=== PATIENT | female | born 1950 | race Caucasian/White ===

== ENCOUNTER 2017-10-14 16:58 | Emergency (ER) | payer OTHER ==
[2017-10-14 17:12] VITALS: BP 183/94
--- NOTE | 2017-10-14 17:22 | EDM.PDOC ---
ED HPI GENERAL MEDICAL PROBLEM - General Chief Complaint: Respiratory Problem Stated Complaint: COUGH/WEAKNESS Time Seen by Provider: 10/14/17 17:20 Source of Information: Reports: Patient History Limitations: Reports: No Limitations - History of Present Illness INITIAL COMMENTS - FREE TEXT/NARRATIVE: 66-year-old female presents to the ED at the request of his primary care physician Dr. Eddy. Patient has had a paroxysmal intermittently productive cough for the better part of a month. He states that she appreciates intermittent fever and/or chills. She came up from the hemodialysis suite as she was noted to be coughing much more by the nursing staff in the dialysis unit. O2 sats are drifting between 90 and 92%. She has a history of COPD and of course congestive failure due to renal disease. Apparently she did complete all 4 hours of her dialysis run today. Appetite has remained good. She does use a nebulizer machine at home and it sometimes helps her breathe better. She is date since she does sleep a lot on the couch propped up on 2 pillows because she is unable to lie flat to breathe at night. As far she knows her dry weight has not been changed. She`s had no recent labs or x-rays. She has had previous flu shot. Onset: Gradual Onset Date: 09/15/17 Duration: Day(s): Location: Reports: Chest (Shortness of breath and paroxysmal and intermittent cough. Occasionally productive of yellowish colored sputum.) Quality: Reports: Same as Previous Episode, Other. Denies: Sharp, Stabbing Severity: Moderate Improves with: Reports: Medication (Sometimes inhalation medication seems to help with her nebulizer machine.) Worsens with: Reports: Movement (Plays out very easily on minimal activity.) Context: Denies: Activity, Exercise, Lifting, Sick Contact, Trauma, Other Associated Symptoms: Reports: Cough, cough w sputum, Fever/Chills, Malaise, Shortness of Breath, Weakness (Feel she's getting weaker particularly in her lower extremities.). Denies: Chest Pain, Diaphoresis (Occasional production of yellowish sputum without blood), Headaches (She feels cold and hot at times.), Loss of Appetite, Nausea/Vomiting, Rash, Seizure, Syncope Treatments SENIOR HYDROGEOLOGIST: Reports: Breathing Treatments (Has a nebulizer machine at home. But sure what medicine she uses with this.) - Related Data Allergies Allergy/AdvReac Type Severity Reaction Status Date / Time cephalexin [Cephalexin] Allergy Unknown Cannot Verified 10/14/17 17:12 Remember hydrochlorothiazide Allergy Unknown Cannot Verified 10/14/17 17:12 Remember sertraline HCl [From Zoloft] Allergy Unknown Cannot Verified 10/14/17 17:12 Remember triamterene [Triamterene] Allergy Unknown Cannot Verified 10/14/17 17:12 Remember iodine Allergy Cannot Verified 10/14/17 17:12 Remember Home Meds: Home Meds Acetaminophen [Tylenol] 650 mg PO Q6H PRN 10/14/17 [History] Ascorbic Acid 500 mg PO BEDTIME 10/14/17 [History] Benztropine Mesylate 0.5 mg PO BID 10/14/17 [History] Clopidogrel [Plavix] 75 mg PO DAILY 10/14/17 [History] Diltiazem [Diltiazem ER] 60 mg PO ASDIRECTED 10/14/17 [History] Diltiazem [Diltiazem ER] 60 mg PO ASDIRECTED 10/14/17 [History] Docusate Sodium [Colace] 100 mg PO BID 10/14/17 [History] Donepezil HCl [Aricept] 10 mg PO BEDTIME 10/14/17 [History] Donepezil [Aricept] 5 mg PO DAILY 10/14/17 [History] Haloperidol [Haldol] 5 mg PO BEDTIME 10/14/17 [History] Multivitamin [Multi-Vitamin Daily] 1 tab PO DAILY 10/14/17 [History] Nitroglycerin 0.4 mg SL ASDIRECTED PRN 10/14/17 [History] Non-Formulary Medication [NF Drug] 1 tab PO BEDTIME PRN 10/14/17 [History] Nystatin 1 each TOP BID PRN 10/14/17 [History] PARoxetine [Paxil] 20 mg PO DAILY 10/14/17 [History] Pantoprazole [ProTONIX] 40 mg PO DAILY 10/14/17 [History] Polyethylene Glycol 3350 [MiraLAX] 17 gm PO DAILY PRN 10/14/17 [History] Pramoxine HCl [Sarna] 222 ml TP BID PRN 10/14/17 [History] Prednisone [IJD: predniSONE] 40 mg PO WITHBREAKFAST 10/14/17 [History] Simvastatin [Zocor] 10 mg PO BEDTIME 10/14/17 [History] Sodium Bicarbonate 325 mg PO TID 10/14/17 [History] Warfarin Sodium 2.5 mg PO ASDIRECTED 10/14/17 [History] Warfarin Sodium 5 mg PO ASDIRECTED 10/14/17 [History] guaiFENesin 200 mg PO Q4H PRN 10/14/17 [History] Past Medical History HEENT History: Reports: Impaired Vision Cardiovascular History: Reports: Afib (Chronically.), Hypertension, NV, SOB on Exertion, Stents Gastrointestinal History: Reports: Other (See Below) Other Gastrointestinal History: constipation Genitourinary History: Reports: Dialysis, Other (See Below) (Patient states she makes about a cup of urine daily.) VACUUM CASTER History: Reports: Musculoskeletal History: Reports: Back Pain, Chronic Psychiatric History: Reports: Depression, Psychosis Endocrine/Metabolic History: Reports: Diabetes, Type II - Past Surgical History Cardiovascular Surgical History: Reports: Vascular Surgery (A-V shunt Lt distal arm utilized for dialysis.) Social & Family History - Tobacco Use Smoking Status *Q: Former Smoker Years of Tobacco use: 1 Used Tobacco, but Quit: Yes Month Tobacco Last Used: 1966 Second Hand Smoke Exposure: No - Caffeine Use Caffeine Use: Reports: Coffee - Alcohol Use Days Per Week of Alcohol Use: 0 - Recreational Drug Use Recreational Drug Use: No - Living Situation & Occupation Living situation: Reports: , Alone Occupation: Disabled ED ROS GENERAL - Review of Systems Review Of Systems: See Below Constitutional: Reports: Fever, Chills, Malaise, Weakness, Fatigue HEENT: Reports: Glasses. Denies: Ear Discharge, Ear Pain, Eye Pain, Hearing Loss, Nosebleed, Sinus Problem, Throat Pain, Throat Swelling Respiratory: Reports: Shortness of Breath, Wheezing (Audibly in the dialysis suite today.), Cough, Sputum. Denies: Pleuritic Chest Pain, Hemoptysis ( Occasional yellow sputum produced.), Other Cardiovascular: Reports: Blood Pressure Problem, Dyspnea on Exertion, Edema ( Chronically usually well controlled with), Orthopnea, Palpitations (Can ever lay on her back to sleep as it makes her too short of breath. Reticulocyte atrial fibrillation). Denies: Chest Pain, Claudication (Chronic hypertension.) Endocrine: Reports: Fatigue GI/Abdominal: Reports: Constipation (Intermittent positive constipation), Nausea. Denies: Abdominal Pain, Decreased Appetite, Difficulty Swallowing, Hematemesis, Hematochezia, Stool Incontinence (Vocational), Vomiting, Other : Reports: Other (Makes. Little urine.) Musculoskeletal: Reports: Back Pain, Joint Pain (Knees and hips at times) Skin: Reports: Pallor (Chronic anemia.), Bruising (Bruises very easily as she is on Plavix and Coumadin.) Neurological: Reports: Tingling, Difficulty Walking, Weakness (Chronically). Denies: Dizziness, Headache, Numbness, Syncope, Tremors (In her feet sometimes) , Trouble Speaking, Change in Speech ( lower extremities) Psychiatric: Reports: No Symptoms Hematologic/Lymphatic: Reports: No Symptoms Immunologic: Reports: No Symptoms ED EXAM, GENERAL - Physical Exam Exam: See Below Exam Limited By: No Limitations General Appearance: Alert, WD/WN, Mild Distress, Other (O2 sats on room air only 90%. Placed on O2 at 2 L/m to achieve O2 sats of 96%.) Eye Exam: Bilateral Eye: Normal Inspection (Mild pallor of the peripheral margins.) Throat/Mouth: Normal Inspection, Normal Lips, Normal Oropharynx Head: Atraumatic, Normocephalic Neck: Normal Inspection, Supple, Non-Tender, Full Range of Motion. No: Carotid Bruit, Lymphadenopathy (L), Lymphadenopathy (R), Thyromegaly Respiratory/Chest: Respiratory Distress (Tachypnea at rest 20/m.), Decreased Breath Sounds, Wheezing (Severely diminished breath sounds to the posterior 50% of lung georges. Scattered rhonchi and wheezes throughout both lung georges. On expiration throughout all lung georges.), Other. No: Accessory Muscle Use, Retractions, Splinting Cardiovascular: No Murmur (Heart sounds are difficult to hear due to adventitial sounds in the lungs as well as very thick chest.), No Rub, Irregularly Irregular (Monitor reveals atrial fibrillation at 10 5/m.). No: Normal Peripheral Pulses, Systolic Murmur, Gallop/S3, Gallop/S4 Peripheral Pulses: 1+: Posterior Tibial (L), Posterior Tibial (R), Dorsalis Pedis (L), Dorsalis Pedis (R), 2+: Carotid (L), Carotid (R) GI/Abdominal: Normal Bowel Sounds, Soft, Non-Tender, No Organomegaly, Other ( Moderate abdominal obesity.) Back Exam: Normal Inspection, Full Range of Motion. No: CVA Tenderness (L), CVA Tenderness (R) Extremities: Pedal Edema (Minimal pedal edema at the ankles.) Neurological: Alert, Oriented, CN II-XII Intact, Normal Cognition. No: Normal Gait Psychiatric: Flat Affect Skin Exam: Warm, Dry, Intact, Pallor (Mild pallor.) EKG INTERPRETATION EKG Date: 10/14/17 Time: 17:20 Rhythm: A-Fib Rate (Beats/Min): 104 [place]: RAD-Right [place] Deviation (Borderline right axis deviation.) P-Wave: Variable (Atrial fibrillation.) QRS: Other (Q waves V1 and near Q waves V2. Consider old anteroseptal myocardial infarction.) QT: Normal EKG Interpretation Comments: Abnormal ECG. Course - Vital Signs Last Recorded V/S: Last Vital Signs Temp 36.0 C 10/14/17 17:07 Pulse 101 H 10/14/17 17:07 Resp 19 10/14/17 17:07 BP 183/94 H 10/14/17 17:07 Pulse Ox 95 10/14/17 18:27 - Orders/Labs/Meds Orders: Active Orders 24 hr Category Date Time Status EKG Documentation Completion [RC] STAT Care 10/14/17 17:17 Active Oxygen Therapy [RC] ASDIRECTED Care 10/14/17 17:21 Active RT Aerosol Therapy [RC] ASDIRECTED Care 10/14/17 17:38 Active Chest 1V Frontal [CR] Stat Exams 10/14/17 17:17 Taken CULTURE BLOOD [BC] Stat Lab 10/14/17 17:21 Ordered CULTURE BLOOD [BC] Stat Lab 10/14/17 17:21 Ordered Blood Culture x2 Reflex Set [OM.PC] Stat Oth 10/14/17 17:21 Ordered Labs: Laboratory Tests 10/14/17 10/14/17 10/14/17 Range/Units 17:52 17:52 17:52 WBC 5.85 (3.98-10.04) K/mm3 RBC 3.32 L (3.98-5.22) M/mm3 Hgb 10.5 L (11.2-15.7) gm/L Hct 32.3 L (34.1-44.9) % MCV 97.3 H (79.4-94.8) fl MCH 31.6 (25.6-32.2) pg MCHC 32.5 (32.2-35.5) g/dl RDW Std Deviation 42.7 (36.4-46.3) fL Plt Count 165 L (182-369) K/mm3 MPV 10.3 (9.4-12.3) fl Neutrophils % (Manual) 72 H (40-60) % Band Neutrophils % 0 (0-10) % Lymphocytes % (Manual) 10 L (20-40) % Atypical Lymphs % 0 % Monocytes % (Manual) 18 H (2-10) % Eosinophils % (Manual) 0 L (0.7-5.8) % Basophils % (Manual) 0 L (0.1-1.2) Platelet Estimate Adequate Plt Morphology Comment Normal RBC Morph Comment Normal ESR (0-20) mm/hr PT 27.1 H (8.0-13.0) SECONDS INR 2.35 Sodium 141 (136-145) mEq/L Potassium 3.2 L (3.5-5.1) mEq/L Chloride 102 (98-107) mEq/L Carbon Dioxide 29 (21-32) mEq/L Anion Gap 13.2 (5-15) BUN 6 L (7-18) mg/dL Creatinine 1.1 H (0.55-1.02) mg/dL Est Cr Clr Drug Dosing 38.71 mL/min Estimated GFR (MDRD) 49 (>60) mL/min BUN/Creatinine Ratio 5.5 L (14-18) Glucose 89 (80-115) mg/dL Calcium 8.8 (8.5-10.1) mg/dL Phosphorus 2.5 L (2.6-4.7) mg/dL Magnesium 1.4 L (1.8-2.4) mg/dl Total Bilirubin 0.3 (0.2-1.0) mg/dL AST 27 (15-37) U/L ALT 29 (14-59) U/L Alkaline Phosphatase 120 H (46-116) U/L CK-MB (CK-2) 2.7 (0-3.6) ng/ml Troponin I 0.022 (0.00-0.056) ng/mL C-Reactive Protein 1.2 H* (<1.0) mg/dL NT-Pro-B Natriuret Pep 2899 H (0-125) pg/mL Total Protein 7.0 (6.4-8.2) g/dl Albumin 3.5 (3.4-5.0) g/dl Globulin 3.5 gm/dL Albumin/Globulin Ratio 1.0 (1-2) Urine Color (Yellow) Urine Appearance (Clear) Urine pH (5.0-8.0) Ur Specific [place] (1.005-1.030) Urine Protein (Negative) Urine Glucose (UA) (Negative) Urine Ketones (Negative) Urine Occult Blood (Negative) Urine Nitrite (Negative) Urine Bilirubin (Negative) Urine Urobilinogen (0.2-1.0) Ur Leukocyte Esterase (Negative) Urine RBC (0-5) /hpf Urine WBC (0-5) /hpf Ur Epithelial Cells (0-5) /hpf Urine Bacteria (FEW) /hpf Hyaline Casts (0-5) /lpf Urine Mucus (FEW) /hpf 10/14/17 10/14/17 Range/Units 17:52 18:35 WBC (3.98-10.04) K/mm3 RBC (3.98-5.22) M/mm3 Hgb (11.2-15.7) gm/L Hct (34.1-44.9) % MCV (79.4-94.8) fl MCH (25.6-32.2) pg MCHC (32.2-35.5) g/dl RDW Std Deviation (36.4-46.3) fL Plt Count (182-369) K/mm3 MPV (9.4-12.3) fl Neutrophils % (Manual) (40-60) % Band Neutrophils % (0-10) % Lymphocytes % (Manual) (20-40) % Atypical Lymphs % % Monocytes % (Manual) (2-10) % Eosinophils % (Manual) (0.7-5.8) % Basophils % (Manual) (0.1-1.2) Platelet Estimate Plt Morphology Comment RBC Morph Comment ESR 32 H (0-20) mm/hr PT (8.0-13.0) SECONDS INR Sodium (136-145) mEq/L Potassium (3.5-5.1) mEq/L Chloride (98-107) mEq/L Carbon Dioxide (21-32) mEq/L Anion Gap (5-15) BUN (7-18) mg/dL Creatinine (0.55-1.02) mg/dL Est Cr Clr Drug Dosing mL/min Estimated GFR (MDRD) (>60) mL/min BUN/Creatinine Ratio (14-18) Glucose (80-115) mg/dL Calcium (8.5-10.1) mg/dL Phosphorus (2.6-4.7) mg/dL Magnesium (1.8-2.4) mg/dl Total Bilirubin (0.2-1.0) mg/dL AST (15-37) U/L ALT (14-59) U/L Alkaline Phosphatase (46-116) U/L CK-MB (CK-2) (0-3.6) ng/ml Troponin I (0.00-0.056) ng/mL C-Reactive Protein (<1.0) mg/dL NT-Pro-B Natriuret Pep (0-125) pg/mL Total Protein (6.4-8.2) g/dl Albumin (3.4-5.0) g/dl Globulin gm/dL Albumin/Globulin Ratio (1-2) Urine Color Yellow (Yellow) Urine Appearance Clear (Clear) Urine pH 6.0 (5.0-8.0) Ur Specific [place] 1.025 (1.005-1.030) Urine Protein 1+ H (Negative) Urine Glucose (UA) Negative (Negative) Urine Ketones Trace H (Negative) Urine Occult Blood Negative (Negative) Urine Nitrite Negative (Negative) Urine Bilirubin Negative (Negative) Urine Urobilinogen 0.2 (0.2-1.0) Ur Leukocyte Esterase 1+ H (Negative) Urine RBC 0-5 (0-5) /hpf Urine WBC 10-20 H (0-5) /hpf Ur Epithelial Cells 0-5 (0-5) /hpf Urine Bacteria Moderate H (FEW) /hpf Hyaline Casts 0-5 (0-5) /lpf Urine Mucus Not seen (FEW) /hpf Meds: Medications Discontinued Medications Generic Name Dose Route Start Last Admin Trade Name Freq PRN Reason Stop Dose Admin Albuterol/Ipratropium 3 ml 10/14/17 17:38 10/14/17 17:53 Duoneb 3.0-0.5 Mg/3 Ml NEB 01/24/18 17:39 3 ml ONETIME ONE Administration - Radiology Interpretation Free Text/Narrative:: 66-year-old female presents the ED for evaluation of productive cough with audible wheezing while in the renal dialysis unit today. She reports she's been coughing paroxysmally with intermittent yellow sputum production for about a month. Intermittent fever and chills. Apparently there's been no change in her dry weight. By history she has chronic orthopnea can't sleep on her back or lie flat. History of COPD. Quit smoking several years ago. Does use a nebulizer machine at home however she is getting minimal relief. History of chronic atrial fibrillation. Rate at present is 10 5/m. His anticoagulant with both Coumadin and Plavix. History of coronary disease and myocardial infarction. History of congestive heart failure of course aggravated by renal failure and need for dialysis. Examination reveals mildly increased jugular venous distention. Decreased air entry to the lower 50% of lung georges bilaterally. Scattered expiratory wheezes in all lung georges but difficult to hear in the bases. No crackles identified. Heart sounds are distant atrial fibrillation on the monitor at 10 5/m. O2 sats are 90% on room air. Placed on oxygen 2 L/m by nasal prongs. Influenza screen to be done. Routine labs including blood cultures 2 will be ordered although she is afebrile at this time. DuoNeb to be administered as well. Clinically she is likely experiencing an exacerbation of COPD with possible bronchitis. - Re-Assessments/Exams Free Text/Narrative Re-Assessment/Exam: 10/14/17 18:23 chest x-ray reveals diffuse vascular congestion with bilateral prominent pulmonary arteries. Small pleural effusion left base. Mild cardiomegaly. 10/14/17 19:00 White count is 5.85 with 72% neutrophils no bands and 10% lymphocytes. Hemoglobin is low at 10.5 with hematocrit of 32.3. MCV is mildly elevated at 97.3 compatible with renal dialysis state. White count is normal and 165,000. Sedimentation rate is elevated at 32. PT is 27.1 with a therapeutic INR of 2.35. She has a chronic atrial fibrillation. Sodium is 141 potassium is mildly low at 3.2. Chloride 102 bicarbonate is 29. Anion gap is normal at 13.2. BUN is 6 with a creatinine of 1.1 post dialysis today. Glucose is 89. Calcium is 8.8 phosphorus is low at 2.5 magnesium is low at 1.4. Bilirubin is 0.3 AST is 27. ALT is 29. Alkaline phosphatase 120. CK-MB fraction is 2.7 troponin I is 0.0-2 normal. C-reactive protein is 1.2. BNP is elevated at 2899. Urinalysis reveals trace ketones 1+ leukocyte esterase with 10-20 WBCs per power field and moderate bacteria.Urine culture ordered.Influenza screen is negative. Therefore her persistent cough for a month with intermittent yellow sputum is likely due to continued congestive heart failure and likely needs an increase in her dry weight.. It's unclear if her cardiac function is deteriorating and she will need further investigations by way of echocardiogram. Since she is a dialysis patient she would have to be transferred to [facility] for these tests to be completed. Atrial fib rate is staying too high and is often in the 120s to as high as 140 at times. It is always been greater than 105. This of course is contributing to congestive failure. I will give her Cardizem 10 mg IV bolus. The directions on her current caries I'm is 60 mg extended release taken twice daily on dialysis days and 4 times daily on nondialysis days. 10/14/17 19:29: Second dose of Cardizem as I'm 10 mg IV bolus was withheld as heart rate started to improve. It took over half an hour before he started to have an effect. Her heart rate is 104. 10/14/17 20:13 - I have spoken with Dr Sher --hospitalist at [facility] in [facility]. He has accepted care of this patient. She will transported to that facility per ground ambulance. Diagnosis is chronic cough with orthopnea secondary to exacerbation of congestive heart failure. Atrial fibrillation with rapid ventricular rate in the 130s. Hemodialysis patient with suspect need to increase her dry weight. Heart rate has come down to the 90s at this time. BP is 123/67 at time of discharge. Departure - Departure Time of Disposition: 20:20 Disposition: DC/Tfer to Acute Hospital 02 Condition: Fair Clinical Impression: Chronic atrial fibrillation with RVR, Hemodialysis patient, Hypomagnesemia, Hypokalemia, Chronic disease anemia Acute exacerbation of congestive heart failure Qualifiers: Congestive heart failure type: diastolic Qualified Code(s): I50.33 - Acute on chronic diastolic (congestive) heart failure Urinary tract infection Qualifiers: Urinary tract infection type: acute cystitis Hematuria presence: without hematuria Qualified Code(s): N30.00 - Acute cystitis without hematuria - Discharge Information Referrals: Lui Eddy MD [Primary Care Provider] - Forms: ED Department Discharge Additional Instructions: Patient to be transported to [facility] under the care of Dr. Sher--hospitalist. Because she is a hemodialysis patient and requires admission to hospital due to hypoxemia secondary to congestive heart failure exacerbation she needs to be admitted to hospital. Has atrial fibrillation chronically with rapid ventricular rate controlling to CHF. She is also a hemodialysis patient and fluid overload is present. - My Orders Last 24 Hours: My Active Orders 10/14/17 17:17 EKG Documentation Completion [RC] STAT Chest 1V Frontal [CR] Stat 10/14/17 17:21 Oxygen Therapy [RC] ASDIRECTED CULTURE BLOOD [BC] Stat CULTURE BLOOD [BC] Stat Blood Culture x2 Reflex Set [OM.PC] Stat 10/14/17 17:38 RT Aerosol Therapy [RC] ASDIRECTED - Assessment/Plan Last 24 Hours: My Active Orders 10/14/17 17:17 EKG Documentation Completion [RC] STAT Chest 1V Frontal [CR] Stat 10/14/17 17:21 Oxygen Therapy [RC] ASDIRECTED CULTURE BLOOD [BC] Stat CULTURE BLOOD [BC] Stat Blood Culture x2 Reflex Set [OM.PC] Stat 10/14/17 17:38 RT Aerosol Therapy [RC] ASDIRECTED
[2017-10-14] MEDS ORDERED: Albuterol/Ipratropium 3.0-0.5 MG/3 ML Neb Soln NEB ONE (17:38)
[2017-10-14] MEDS ORDERED: Diltiazem 25 MG/5 ML SDV IVPUSH ONE (19:22)
[2017-10-14] MEDS ORDERED: cefTRIAXone 1 GM in Sodium Chloride 0.9% 100 ML IV ONE (19:23)
--- NOTE | 2017-10-15 06:27 | CR ---
Chest: Portable view of the chest was obtained. Comparison: Prior chest x-ray of 01/19/16. Heart is slightly enlarged. Pulmonary vessels are minimally congested. Lungs otherwise are clear. Degenerative spurring is noted within the spine. Impression: 1. Heart is slightly enlarged with pulmonary vessels being mildly congested. Diagnostic code #3
== END 2017-10-14 20:30 ==
LOC: JD.ED 16:58
DX: I11.0 Hypertensive heart disease with heart failure (principal); I50.33 Acute on chronic diastolic (congestive) heart failure; I48.2 Chronic atrial fibrillation; N30.00 Acute cystitis without hematuria; E83.42 Hypomagnesemia; E87.6 Hypokalemia; D63.8 Anemia in other chronic diseases classified elsewhere; Z88.8 Allergy status to other drugs, medicaments and biological substances; Z79.899 Other long term (current) drug therapy; Z79.01 Long term (current) use of anticoagulants; E11.9 Type 2 diabetes mellitus without complications; Z87.891 Personal history of nicotine dependence; Z99.2 Dependence on renal dialysis
CPT/HCPCS: 36415; 71045; 80053; 81001; 82553; 83735; 83880; 84100; 84484; 85025; 85610; 85652; 86140; 87040; 87086; 87804; 93005; 94640; 96365; 96375; 99285; J0696; J3490; J7030

== ENCOUNTER 2018-04-07 14:40 | Emergency (ER) | payer OTHER ==
[2018-04-07] MEDS ORDERED: Sodium Chloride 0.9% 100 ML IV SCH (16:15)
--- NOTE | 2018-04-07 16:41 | CT ---
CT lumbar spine Technique: Multiple axial sections were obtained from the mid T10 level inferiorly through the L5-S1 disc. Reconstructed sagittal and coronal images were obtained. Findings: Scattered endplate osteophytes are seen anteriorly. Endplate concavity is noted superiorly within L3 which is most likely old as I do not see an acute fracture line. No fracture is appreciated within the lumbar spine. No abnormal subluxation is seen. Asymmetric disc bulge at L5-S1 touches the left S1 nerve root. Circumferential disc bulge also noted at L4-5 maintaining a a planar posterior margin. Circumferential disc bulge with concave posterior disc is noted at L3-4. Minimal circumferential disc bulge is seen with posterior disc maintaining a concave margin at L2-3. No bony central or bony neural foraminal stenosis is seen. Impression: 1. Superior endplate concavity of L3 believed to be old as no acute fracture line is seen. 2. Circumferential disc bulging which at L5-S1 is asymmetric to the posterior lateral left side and touches the left S1 nerve root. 3. No acute fracture or subluxation is seen. Diagnostic code #3
--- NOTE | 2018-04-07 18:09 | EDM.PDOC ---
ED HPI GENERAL MEDICAL PROBLEM - General Chief Complaint: Back Pain or Injury Stated Complaint: LOW BACK PAIN Time Seen by Provider: 04/07/18 15:21 Source of Information: Reports: Patient, RN Notes Reviewed - History of Present Illness INITIAL COMMENTS - FREE TEXT/NARRATIVE: 67 year old lady has been brought here to the ED by [facility] nurse. She has low back pain intermitent for about 5 days but worsening the past 3 days. At times quite severe pain with motion, better to sit or lie still. She did fall about a week ago at [facility]. Was not having severe pain at that time. No chest pain or difficulty breathing. No abd pain, nausea or vomiting. 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: Acetaminophen Lower Back Pain Score (Numeric/FACES): 10 - Related Data Allergies Allergy/AdvReac Type Severity Reaction Status Date / Time cephalexin [Cephalexin] Allergy Unknown Cannot Verified 10/14/17 17:12 Remember hydrochlorothiazide Allergy Unknown Cannot Verified 10/14/17 17:12 Remember sertraline HCl [From Zoloft] Allergy Unknown Cannot Verified 10/14/17 17:12 Remember triamterene [Triamterene] Allergy Unknown Cannot Verified 10/14/17 17:12 Remember iodine Allergy Cannot Verified 10/14/17 17:12 Remember Home Meds: Home Meds Acetaminophen [Tylenol] 650 mg PO Q4HR PRN 10/14/17 [History] Benztropine Mesylate 1 mg PO BID 10/14/17 [History] Clopidogrel [Plavix] 75 mg PO DAILY 10/14/17 [History] Docusate Sodium [Colace] 100 mg PO BID 10/14/17 [History] Donepezil HCl [Aricept] 10 mg PO DAILY 10/14/17 [History] Donepezil [Aricept] 5 mg PO DAILY 10/14/17 [History] Haloperidol [Haldol] 5 mg PO BEDTIME 10/14/17 [History] Multivitamin [Multi-Vitamin Daily] 1 tab PO DAILY 10/14/17 [History] Nitroglycerin 0.4 mg SL ASDIRECTED PRN 10/14/17 [History] PARoxetine [Paxil] 20 mg PO DAILY 10/14/17 [History] Pantoprazole [ProTONIX] 40 mg PO DAILY 10/14/17 [History] Polyethylene Glycol 3350 [MiraLAX] 17 gm PO DAILY PRN 10/14/17 [History] Pramoxine HCl [Sarna] 222 ml TP BID PRN 10/14/17 [History] Simvastatin [Zocor] 10 mg PO BEDTIME 10/14/17 [History] Sodium Bicarbonate 325 mg PO TID 10/14/17 [History] Warfarin Sodium 5 mg PO QPM 10/14/17 [History] Actuat 1 puff 04/07/18 [History] Ascorbic Acid 500 mg PO BEDTIME 04/07/18 [History] Diltiazem [Cardizem CD] 1 tab PO QID 04/07/18 [History] Donepezil HCl [Aricept] 10 mg PO DAILY 04/07/18 [History] Fluticasone/Salmeterol [Advair 250-50 Diskus] 1 inh INH BID 04/07/18 [History] Mirtazapine 15 mg PO BEDTIME 04/07/18 [History] Sevelamer Carbonate [Renvela] 800 mg PO TID 04/07/18 [History] Past Medical History HEENT History: Reports: Impaired Vision Cardiovascular History: Reports: Afib, Hypertension, [place], SOB on Exertion, Stents Respiratory History: Reports: SOB Gastrointestinal History: Reports: Other (See Below) Other Gastrointestinal History: constipation Genitourinary History: Reports: Chronic Renal Insuffiency, Dialysis, Other (See Below) SENIOR DIRECTOR History: Reports: Musculoskeletal History: Reports: Back Pain, Chronic Neurological History: Reports: Parkinson's Psychiatric History: Reports: Anxiety, Depression, Mood Swings, Psychosis, Schizophrenia Endocrine/Metabolic History: Reports: Diabetes, Type II Hematologic History: Reports: Anticoagulation Therapy - Past Surgical History Cardiovascular Surgical History: Reports: Vascular Surgery Social & Family History - Tobacco Use Smoking Status *Q: Never Smoker - Caffeine Use Caffeine Use: Reports: Coffee - Recreational Drug Use Recreational Drug Use: No - Living Situation & Occupation Living situation: Reports: , Alone Occupation: Disabled ED ROS GENERAL - Review of Systems Review Of Systems: See Below Constitutional: Denies: Fever, Chills HEENT: Reports: No Symptoms Respiratory: Denies: Shortness of Breath Cardiovascular: Denies: Chest Pain GI/Abdominal: Denies: Abdominal Pain, Nausea, Vomiting : Reports: No Symptoms Musculoskeletal: Reports: Back Pain (low back) Skin: Denies: Rash ED EXAM,LOWER BACK PAIN/INJURY - Physical Exam Exam: See Below General Appearance: Alert, No Apparent Distress (at rest) Eye Exam: Bilateral Eye: PERRL Head: Atraumatic Neck: Supple Respiratory/Chest: No Respiratory Distress, Lungs Clear, Normal Breath Sounds Cardiovascular: Regular Rate, Rhythm GI/Abdominal: Soft, Non-Tender. No: Guarding Back Exam: Paraspinal Tenderness (bilat low back, no bruising or swelling visible) Extremities: Other (hips nontender). No: Pedal Edema, Leg Pain Neurological: Alert, No Motor/Sensory Deficits Skin Exam: Warm, Dry Course - Vital Signs Last Recorded V/S: Last Vital Signs Temp 98.1 F 04/07/18 18:33 Pulse 75 04/07/18 18:33 Resp 18 04/07/18 18:33 BP 122/62 04/07/18 18:33 Pulse Ox 94 L 04/07/18 18:33 - Re-Assessments/Exams Free Text/Narrative Re-Assessment/Exam: 04/07/18 20:10 CT of low back does not show acute fx. Departure - Departure Time of Disposition: 18:04 Disposition: Home, Self-Care 01 Condition: Fair Clinical Impression: Back pain Qualifiers: Back pain location: low back pain Chronicity: acute Sciatica presence: unspecified whether sciatica present - Discharge Information Instructions: Back Pain, Adult, [id number] Referrals: Jaswant Dan MD [Primary Care Provider] - Forms: ED Department Discharge Additional Instructions: increase tylenol to 625 mg 4 times daily for 3 days and than try taper to 650 mg 3 times daily. 1/4 tablet hydrocodone in between doses of tylenol if needed for severe breakthrough pain. Follow up clinic as needed. Return to ED as needed.
[2018-04-07 18:39] VITALS: BP 122/62
== END 2018-04-07 18:20 | disposition home or self-care (01) ==
LOC: JD.ED 14:40
DX: M54.5 Low back pain (principal); I48.91 Unspecified atrial fibrillation; I12.9 Hypertensive chronic kidney disease with stage 1 through stage 4 chronic kidney disease, or unspecified chronic kidney disease; E11.22 Type 2 diabetes mellitus with diabetic chronic kidney disease; N18.9 Chronic kidney disease, unspecified; F41.9 Anxiety disorder, unspecified; F32.9 Major depressive disorder, single episode, unspecified; Z79.01 Long term (current) use of anticoagulants; Z88.9 Allergy status to unspecified drugs, medicaments and biological substances; Z88.1 Allergy status to other antibiotic agents; Z79.899 Other long term (current) drug therapy
CPT/HCPCS: 72131; 72131-26; 99283; 99284-25